=== PATIENT | male | born 1985 | race Caucasian/White ===

== ENCOUNTER 2020-03-22 10:36 | Day surgery (SDC) | payer OTHER ==
[2020-03-22] MEDS ORDERED: Sodium Chloride 0.9% 2.5 ML Syringe FLUSH PRN ×2 (11:16→13:06)
[2020-03-22] MEDS ORDERED: Sodium Chloride 0.9% 10 ML Syringe FLUSH PRN ×2 (11:16→13:06)
--- NOTE | 2020-03-22 11:21 | EDM.PDOC ---
ED HPI GENERAL MEDICAL PROBLEM - General Chief Complaint: Abdominal Pain Stated Complaint: ABDOMINAL PAIN Time Seen by Provider: 03/22/20 10:42 Source of Information: Reports: Patient History Limitations: Reports: No Limitations - History of Present Illness INITIAL COMMENTS - FREE TEXT/NARRATIVE: HISTORY AND PHYSICAL: History of present illness: Patient is a 34-year-old male who presents emergency room today with concern of right lower quadrant abdominal pain and nausea that began last night. Patient states he has also noted a decrease in appetite and has not been able to eat or drink today due to the nausea and decreased appetite. Patient states that he was able to take a dose of Tylenol at about 6 this morning but states he has not taken any other medications for his discomfort. Patient denies any history of abdominal surgeries or any health history. Patient denies any other associated symptoms. Patient denies fever, chills, chest pain, shortness of breath, or cough. Denies headache, neck stiff ness, change in vision, syncope, or near syncope. Denies vomiting, diarrhea, constipation, or dysuria. Has not noted any blood in urine or stool. Review of systems: As per history of present illness and below otherwise all systems reviewed and negative. Past medical history: As per history of present illness and as reviewed below otherwise noncontributory. Surgical history: As per history of present illness and as reviewed below otherwise noncontributory. Social history: See social history for further information Family history: As per history of present illness and as reviewed below otherwise noncontributory. Physical exam: General: Patient is alert, oriented, and in no acute distress. Patient sitting comfortably on exam table. Vital stable and reviewed by me HEENT: Atraumatic, normocephalic, pupils equal and reactive bilaterally, negative for conjunctival pallor or scleral icterus, mucous membranes moist, TMs normal bilaterally, throat clear, neck supple, nontender, trachea midline. No drooling or trismus noted. No meningeal signs. No hot potato voice noted. Lungs: Clear to auscultation, breath sounds equal bilaterally, chest nontender. Heart: S1S2, regular rate and rhythm without overt murmur Abdomen: Soft, nondistended, moderate tenderness of the RLQ without guarding, negative Patel, negative rebound. Negative for masses or hepatosplenomegaly. Negative for costovertebral tenderness. Pelvis: Stable nontender. Genitourinary: Deferred. Rectal: Deferred. Skin: Intact, warm, dry. No lesions or rashes noted. Extremities: Atraumatic, negative for cords or calf pain. Neurovascular unremarkable. Neuro: Awake, alert, oriented. Cranial nerves II through XII unremarkable. Cerebellum unremarkable. Motor and sensory unremarkable throughout. Exam nonfocal. Notes: Dr. Rodriges, general surgery [facility], has come in and personally seen and evaluated the patient. Will transfer to the operating room Voices understanding and is agreeable to plan of care. Denies any further questions or concerns at this time. Diagnostics: CBC, CMP, UA, lipase, abdominal pelvic CT, COVID-19 Therapeutics: Saline, Zosyn Impression: Acute appendicitis Plan: Transfer to the operating room to Dr. Rodriges, general surgery Definitive disposition and diagnosis as appropriate pending reevaluation and review of above. right lower abdomen Pain Score (Numeric/FACES): 5 - Related Data Allergies Allergy/AdvReac Type Severity Reaction Status Date / Time No Known Allergies Allergy Verified 03/22/20 10:59 Home Meds: Home Meds . [No Known Home Meds] 03/22/20 [History] Past Medical History - Past Health History Medical/Surgical History: Denies Medical/Surgical History Social & Family History - Family History Family Medical History: No Pertinent Family History - Tobacco Use Tobacco Use Status *Q: Never Tobacco User - Recreational Drug Use Recreational Drug Use: No ED ROS GENERAL - Review of Systems Review Of Systems: Comprehensive ROS is negative, except as noted in HPI. ED EXAM, GENERAL - Physical Exam Exam: See Below (see dictation) Course - Vital Signs Last Recorded V/S: Last Vital Signs Temp 97.7 F 03/22/20 15:05 Pulse 80 03/22/20 15:10 Resp 13 03/22/20 15:10 BP 128/70 03/22/20 15:10 Pulse Ox 93 L 03/22/20 15:10 - Orders/Labs/Meds Orders: Active Orders 24 hr Category Date Time Status Patient Status [ADT] Routine ADT 03/22/20 13:06 Active Antiembolic Devices [RC] PER UNIT ROUTINE Care 03/22/20 13:06 Active Communication Order [RC] ROUTINE Care 03/22/20 15:14 Active Intake and Output [RC] QSHIFT Care 03/22/20 15:13 Active Notify Provider Consults [RC] ASDIRECTED Care 03/22/20 13:18 Active Oxygen Therapy [RC] PRN Care 03/22/20 15:13 Active RT Incentive Spirometry [RC] Q1HWA Care 03/22/20 15:13 Active Up ad Shraddha [RC] ASDIRECTED Care 03/22/20 15:13 Active Verify Patient Consent Obtain [RC] ASDIRECTED Care 03/22/20 13:06 Active Vital Signs [RC] PER UNIT ROUTINE Care 03/22/20 15:13 Active Consult to Physician [CONS] Stat Cons 03/22/20 13:18 Active Regular Diet [DIET] Diet 03/22/20 Dinner Active UA RFX LOTTIE AND CULT IF INDIC [URIN] Stat Lab 03/22/20 11:16 Ordered Acetaminophen/oxyCODONE [Percocet 325-5 MG] Med 03/22/20 15:13 Active 2 tab PO Q4H PRN HYDROmorphone [Dilaudid] Med 03/22/20 15:13 Active 0.5 mg IVPUSH Q1H PRN Lactated Ringers [Ringers, Lactated] 1,000 ml Med 03/22/20 13:15 Active IV ASDIRECTED Sodium Chloride 0.9% [Normal Saline] Med 03/22/20 13:06 Active 10 ml IV ASDIRECTED PRN Sodium Chloride 0.9% [Saline Flush] Med 03/22/20 11:16 Active 10 ml FLUSH ASDIRECTED PRN Sodium Chloride 0.9% [Saline Flush] Med 03/22/20 13:06 Active 10 ml FLUSH ASDIRECTED PRN Sodium Chloride 0.9% [Saline Flush] Med 03/22/20 11:16 Active 2.5 ml FLUSH ASDIRECTED PRN Sodium Chloride 0.9% [Saline Flush] Med 03/22/20 13:06 Active 2.5 ml FLUSH ASDIRECTED PRN diphenhydrAMINE [Benadryl] Med 03/22/20 15:13 Active 50 mg PO Q4H PRN polyethylene glycoL 3350 [MiraLAX] Med 03/22/20 15:13 Active 17 gm PO DAILY PRN Peripheral IV Insertion Adult [OM.PC] Routine Oth 03/22/20 13:06 Ordered Saline Lock Insert [OM.PC] Stat Oth 03/22/20 11:16 Ordered Sequential Compression Device [OM.PC] Routine Oth 03/22/20 13:06 Ordered Resuscitation Status Routine Resus Stat 03/22/20 13:06 Ordered Medication Orders Diphenhydramine HCl (Benadryl) 50 mg PO Q4H PRN PRN Reason: Itching Hydromorphone HCl (Dilaudid) 0.5 mg IVPUSH Q1H PRN PRN Reason: Pain (severe 7-10) Lactated Ringer's (Ringers, Lactated) 1,000 mls @ 125 mls/hr IV ASDIRECTED ROSS Oxycodone/Acetaminophen (Percocet 325-5 Mg) 2 tab PO Q4H PRN PRN Reason: Pain (moderate 4-6) Polyethylene Glycol (Miralax) 17 gm PO DAILY PRN PRN Reason: Constipation Sodium Chloride (Saline Flush) 10 ml FLUSH ASDIRECTED PRN PRN Reason: Keep Vein Open Last Admin: 03/22/20 11:38 Dose: 10 ml Documented by: [email or web address] Sodium Chloride (Saline Flush) 2.5 ml FLUSH ASDIRECTED PRN PRN Reason: Keep Vein Open Last Admin: 03/22/20 11:38 Dose: 2.5 ml Documented by: [id number] Sodium Chloride (Saline Flush) 10 ml FLUSH ASDIRECTED PRN PRN Reason: Keep Vein Open Sodium Chloride (Saline Flush) 2.5 ml FLUSH ASDIRECTED PRN PRN Reason: Keep Vein Open Sodium Chloride (Normal Saline) 10 ml IV ASDIRECTED PRN PRN Reason: IV Use Labs: Laboratory Tests 03/22/20 03/22/20 03/22/20 Range/Units 11:08 11:08 12:37 WBC 11.06 H (4.0-11.0) K/uL RBC 4.85 (4.50-5.90) M/uL Hgb 15.4 (13.0-17.0) g/dL Hct 44.3 (38.0-50.0) % MCV 91.3 (80.0-98.0) fL MCH 31.8 (27.0-32.0) pg MCHC 34.8 (31.0-37.0) g/dL RDW Std Deviation 43.0 (28.0-62.0) fl RDW Coeff of Nadya 13 (11.0-15.0) % Plt Count 187 (150-400) K/uL MPV 11.10 (7.40-12.00) fL Neut % (Auto) 83.6 H (48.0-80.0) % Lymph % (Auto) 9.6 L (16.0-40.0) % [place] % (Auto) 6.6 (0.0-15.0) % Eos % (Auto) 0.1 (0.0-7.0) % Baso % (Auto) 0.1 (0.0-1.5) % Neut # (Auto) 9.3 H (1.4-5.7) K/uL Lymph # (Auto) 1.1 (0.6-2.4) K/uL [place] # (Auto) 0.7 (0.0-0.8) K/uL Eos # (Auto) 0.0 (0.0-0.7) K/uL Baso # (Auto) 0.0 (0.0-0.1) K/uL Nucleated RBC % 0.0 /100WBC Nucleated RBCs # 0 K/uL Sodium 141 (136-148) mmol/L Potassium 4.1 (3.5-5.1) mmol/L Chloride 104 (98-107) mmol/L Carbon Dioxide 26.3 (21.0-32.0) mmol/L BUN 23 H (7.0-18.0) mg/dL Creatinine 1.2 (0.8-1.3) mg/dL Est Cr Clr Drug Dosing 91.25 mL/min Estimated GFR (MDRD) > 60.0 ml/min Glucose 123 H (74-106) mg/dL Calcium 9.5 (8.5-10.1) mg/dL Total Bilirubin 0.9 (0.2-1.0) mg/dL AST 72 H (15-37) IU/L ALT 37 (14-63) IU/L Alkaline Phosphatase 94 (46-116) U/L Total Protein 8.1 (6.4-8.2) g/dL Albumin 4.5 (3.4-5.0) g/dL Globulin 3.6 (2.6-4.0) g/dL Albumin/Globulin Ratio 1.2 (0.9-1.6) Lipase 133 (73-393) U/L SARS-CoV-2 RNA (TAYLOR) NEGATIVE (NEGATIVE) Meds: Medications Generic Name Dose Route Start Last Admin Trade Name Bayron PRN Reason Stop Dose Admin Diphenhydramine HCl 50 mg 03/22/20 15:13 Benadryl PO Q4H PRN Itching Hydromorphone HCl 0.5 mg 03/22/20 15:13 Dilaudid IVPUSH Q1H PRN Pain (severe 7-10) Lactated Ringer's 1,000 mls @ 125 mls/hr 03/22/20 13:15 Ringers, Lactated IV ASDIRECTED ROSS Oxycodone/Acetaminophen 2 tab 03/22/20 15:13 Percocet 325-5 Mg PO Q4H PRN Pain (moderate 4-6) Polyethylene Glycol 17 gm 03/22/20 15:13 Miralax PO DAILY PRN Constipation Sodium Chloride 10 ml 03/22/20 11:16 03/22/20 11:38 Saline Flush FLUSH 10 ml ASDIRECTED PRN Administration Keep Vein Open Sodium Chloride 2.5 ml 03/22/20 11:16 03/22/20 11:38 Saline Flush FLUSH 2.5 ml ASDIRECTED PRN Administration Keep Vein Open Sodium Chloride 10 ml 03/22/20 13:06 Saline Flush FLUSH ASDIRECTED PRN Keep Vein Open Sodium Chloride 2.5 ml 03/22/20 13:06 Saline Flush FLUSH ASDIRECTED PRN Keep Vein Open Sodium Chloride 10 ml 03/22/20 13:06 Normal Saline IV ASDIRECTED PRN IV Use Discontinued Medications Generic Name Dose Route Start Last Admin Trade Name Bayron PRN Reason Stop Dose Admin Bupivacaine HCl Confirm 03/22/20 13:27 Marcaine 0.5% Administered 03/22/20 13:28 Dose 30 ml .ROUTE .STK-MED ONE Dexamethasone Confirm 03/22/20 13:05 Dexamethasone Administered 03/22/20 13:06 Dose 20 mg .ROUTE .STK-MED ONE Fentanyl Confirm 03/22/20 13:03 Sublimaze Administered 03/22/20 13:04 Dose 250 mcg .ROUTE .STK-MED ONE Glycopyrrolate Confirm 03/22/20 13:05 Robinul Administered 03/22/20 13:06 Dose 0.4 mg .ROUTE .STK-MED ONE Hydromorphone HCl Confirm 03/22/20 13:10 Dilaudid Administered 03/22/20 13:11 Dose 2 mg .ROUTE .STK-MED ONE Sodium Chloride 1,000 mls @ 999 mls/hr 03/22/20 12:36 03/22/20 12:58 Normal Saline IV 03/22/20 13:36 999 mls/hr STAT ONE Administration Piperacillin Sod/Tazobactam 50 mls @ 100 mls/hr 03/22/20 12:36 03/22/20 12:58 Sod 3.375 gm/ Sodium Chloride IV 03/22/20 13:05 100 mls/hr ONETIME ONE Administration Acetaminophen Confirm 03/22/20 13:01 Ofirmev Administered 03/22/20 13:02 Dose 100 mls @ as directed .ROUTE .STK-MED ONE Iopamidol 100 ml 03/22/20 12:10 03/22/20 12:10 Isovue Multipack-370 (76%) IVPUSH 03/22/20 12:11 100 ml ONETIME ONE Administration Ketorolac Tromethamine Confirm 03/22/20 13:05 Toradol Administered 03/22/20 13:06 Dose 30 mg .ROUTE .STK-MED ONE Lidocaine Confirm 03/22/20 13:04 Xylocaine-Mpf 2% Administered 03/22/20 13:05 Dose 5 ml .ROUTE .STK-MED ONE Midazolam HCl Confirm 03/22/20 13:03 Versed 1 Mg/Ml Administered 03/22/20 13:04 Dose 2 mg .ROUTE .STK-MED ONE Octyl Cyanoacrylate Confirm 03/22/20 14:30 Dermabond Advance Administered 03/22/20 14:31 Dose 1 applic .ROUTE .STK-MED ONE Ondansetron HCl Confirm 03/22/20 13:05 Zofran Administered 03/22/20 13:06 Dose 4 mg .ROUTE .STK-MED ONE Propofol Confirm 03/22/20 13:02 Diprivan 20 Ml Administered 03/22/20 13:03 Dose 200 mg .ROUTE .STK-MED ONE Rocuronium Parker Confirm 03/22/20 13:05 Rocuronium Parker Administered 03/22/20 13:06 Dose 50 mg .ROUTE .STK-MED ONE Departure - Departure Time of Disposition: 13:26 Disposition: Still A Patient 30 Clinical Impression: Acute appendicitis Qualifiers: Acute appendicitis type: unspecified acute appendicitis type Qualified Code(s): K35.80 - Unspecified acute appendicitis - Discharge Information Sepsis Event Note (ED) - Evaluation Sepsis Screening Result: No Definite Risk - Focused Exam Vital Signs: Vital Signs Temp Pulse Resp BP Pulse Ox 03/22/20 15:10 80 13 128/70 93 L 03/22/20 15:06 80 14 142/79 H 93 L 03/22/20 15:05 97.7 F 74 14 145/93 H 96 03/22/20 12:59 97.8 F 69 16 126/79 98 03/22/20 10:57 98.9 F 83 16 134/86 97 - My Orders Last 24 Hours: My Active Orders 03/22/20 11:16 UA RFX LOTTIE AND CULT IF INDIC [URIN] Stat Sodium Chloride 0.9% [Saline Flush] 10 ml FLUSH ASDIRECTED PRN Sodium Chloride 0.9% [Saline Flush] 2.5 ml FLUSH ASDIRECTED PRN Saline Lock Insert [OM.PC] Stat 03/22/20 13:18 Notify Provider Consults [RC] ASDIRECTED Consult to Physician [CONS] Stat - Assessment/Plan Last 24 Hours: My Active Orders 03/22/20 11:16 UA RFX LOTTIE AND CULT IF INDIC [URIN] Stat Sodium Chloride 0.9% [Saline Flush] 10 ml FLUSH ASDIRECTED PRN Sodium Chloride 0.9% [Saline Flush] 2.5 ml FLUSH ASDIRECTED PRN Saline Lock Insert [OM.PC] Stat 03/22/20 13:18 Notify Provider Consults [RC] ASDIRECTED Consult to Physician [CONS] Stat
[2020-03-22 11:44] LABS: BLOOD UREA NITROGEN,BUN 23 mg/dL (7.0-18.0); CARBON DIOXIDE,CO2 26.3 mmol/L (21.0-32.0); CHLORIDE,CL 104 mmol/L (98-107); GLUCOSE RANDOM 123 mg/dL (74-106); LIPASE 133 U/L (73-393); POTASSIUM,K 4.1 mmol/L (3.5-5.1); SODIUM,NA 141 mmol/L (136-148)
[2020-03-22] MEDS ORDERED: Iopamidol 755 MG/ML 500 ML Multipack Bottle IVPUSH ONE (12:10)
--- NOTE | 2020-03-22 12:32 | CT ---
INDICATION: Right lower quadrant pain x1 week TECHNIQUE: CT abdomen and pelvis acquired with IV contrast. 100 cc Isovue 370 COMPARISON: None FINDINGS: Lower chest: Unremarkable. Liver: Unremarkable. Spleen: Unremarkable. Pancreas: Unremarkable. Gallbladder and bile ducts: Unremarkable. Kidneys: Unremarkable. Adrenal glands: Unremarkable. GI tract: Unremarkable. Appendix is dilated up to 1.0 centimeters, fluid-filled and thick-walled with adjacent fluid. Findings consistent with acute appendicitis. Vascular structures: Unremarkable. Lymph nodes: Unremarkable. Miscellaneous: Small fat containing umbilical hernia. No free air or significant free fluid. Pelvic Organs: Unremarkable. Bones: Unremarkable for age. IMPRESSION: Dilated thick-walled and fluid-filled appendix with adjacent free fluid consistent with acute appendicitis. Please note that all CT scans at this facility use dose modulation, iterative reconstruction, and/or weight-based dosing when appropriate to reduce radiation dose to as low as reasonably achievable. Dictated by Layo Ruvalcaba MD @ Mar 22 2020 12:31PM Signed by Dr. Layo Ruvalcaba @ Mar 22 2020 12:31PM
[2020-03-22] MEDS ORDERED: Piperacillin/Tazobactam 3.375 GM in Sodium Chloride 0.9% 50 ML IV ONE (12:36)
[2020-03-22] MEDS ORDERED: Sodium Chloride 0.9% 1,000 ML IV ONE (12:36)
[2020-03-22] MEDS ORDERED: Propofol 200 MG/20 ML SDV ONE (13:02)
[2020-03-22] MEDS ORDERED: fentaNYL 250 MCG/5 ML SDV ONE (13:03)
[2020-03-22] MEDS ORDERED: Midazolam 1 MG/ML 2 ML SDV ONE (13:03)
[2020-03-22] MEDS ORDERED: Lidocaine 2% 5 ML SDV ONE (13:04)
[2020-03-22] MEDS ORDERED: Rocuronium Bromide 50 MG/5 ML Syringe ONE (13:05)
[2020-03-22] MEDS ORDERED: Dexamethasone 4 MG/ML 5 ML MDV ONE (13:05)
[2020-03-22] MEDS ORDERED: Glycopyrrolate 0.2 MG/ML SDV ONE (13:05)
[2020-03-22] MEDS ORDERED: Ondansetron 4 MG/2 ML SDV ONE (13:05)
[2020-03-22] MEDS ORDERED: Ketorolac 30 MG/ML SDV ONE (13:05)
[2020-03-22] MEDS ORDERED: Sodium Chloride 0.9% 10 ML SDV IV PRN (13:06)
[2020-03-22] MEDS ORDERED: HYDROmorphone 2 MG/ML Syringe ONE (13:10)
--- NOTE | 2020-03-22 13:12 | PCM.HP.2 ---
H&P History of Present Illness - General Date of Service: 03/22/20 Admit Problem/Dx: Admission Diagnosis/Problem Admission Diagnosis/Problem Appendicitis Source of Information: Patient History Limitations: Reports: No Limitations - History of Present Illness Initial Comments - Free Text/Narative: Patient is a 34 year old male who presents with nausea and abdominal pain. He started to have lower abdominal pain last evening. He woke up this morning feeling nauseated and the pain had not gone away. It was made worse with movement. He presented to the ER. His vitals were stable. His WBC was elevated at 11K with a left shift. A CT abdomen/pelvis showed acute appendicitis. right lower abdomen Pain Score (Numeric/FACES): 5 - Related Data Allergies/Adverse Reactions: Allergies Allergy/AdvReac Type Severity Reaction Status Date / Time No Known Allergies Allergy Verified 03/22/20 10:59 Home Medications: Home Meds . [No Known Home Meds] 03/22/20 [History] Past Medical History - Past Health History Medical/Surgical History: Denies Medical/Surgical History Social & Family History - Family History Family Medical History: No Pertinent Family History - Tobacco Use Tobacco Use Status *Q: Never Tobacco User - Recreational Drug Use Recreational Drug Use: No H&P Review of Systems - Review of Systems: Review Of Systems: Comprehensive ROS is negative, except as noted in HPI. Exam - Exam Exam: See Below - Vital Signs Vital Signs: Last Vital Signs Temp 36.6 C 03/22/20 12:59 Pulse 69 03/22/20 12:59 Resp 16 03/22/20 12:59 BP 126/79 03/22/20 12:59 Pulse Ox 98 03/22/20 12:59 Weight: 95.254 kg - Exam General: Alert, Oriented HEENT: Conjunctiva Clear, Mucosa Moist & [place], Posterior Pharynx Clear Neck: Supple, Trachea Midline Lungs: Clear to Auscultation, Normal Respiratory Effort Cardiovascular: Regular Rate, Regular Rhythm GI/Abdominal Exam: Soft, Guarding (rlq), Rebound (rlq), Tender (rlq) Back Exam: Normal Inspection, Full Range of Motion Extremities: Normal Inspection, Normal Range of Motion Skin: Warm, Dry, Intact Psychiatric: Alert, Normal Affect, Normal Mood - Patient Data Lab Results Last 24 hrs: Laboratory Results - last 24 hr 03/22/20 03/22/20 Range/Units 11:08 11:08 WBC 11.06 H (4.0-11.0) K/uL RBC 4.85 (4.50-5.90) M/uL Hgb 15.4 (13.0-17.0) g/dL Hct 44.3 (38.0-50.0) % MCV 91.3 (80.0-98.0) fL MCH 31.8 (27.0-32.0) pg MCHC 34.8 (31.0-37.0) g/dL RDW Std Deviation 43.0 (28.0-62.0) fl RDW Coeff of Nadya 13 (11.0-15.0) % Plt Count 187 (150-400) K/uL MPV 11.10 (7.40-12.00) fL Neut % (Auto) 83.6 H (48.0-80.0) % Lymph % (Auto) 9.6 L (16.0-40.0) % [place] % (Auto) 6.6 (0.0-15.0) % Eos % (Auto) 0.1 (0.0-7.0) % Baso % (Auto) 0.1 (0.0-1.5) % Neut # (Auto) 9.3 H (1.4-5.7) K/uL Lymph # (Auto) 1.1 (0.6-2.4) K/uL [place] # (Auto) 0.7 (0.0-0.8) K/uL Eos # (Auto) 0.0 (0.0-0.7) K/uL Baso # (Auto) 0.0 (0.0-0.1) K/uL Nucleated RBC % 0.0 /100WBC Nucleated RBCs # 0 K/uL Sodium 141 (136-148) mmol/L Potassium 4.1 (3.5-5.1) mmol/L Chloride 104 (98-107) mmol/L Carbon Dioxide 26.3 (21.0-32.0) mmol/L BUN 23 H (7.0-18.0) mg/dL Creatinine 1.2 (0.8-1.3) mg/dL Est Cr Clr Drug Dosing 91.25 mL/min Estimated GFR (MDRD) > 60.0 ml/min Glucose 123 H (74-106) mg/dL Calcium 9.5 (8.5-10.1) mg/dL Total Bilirubin 0.9 (0.2-1.0) mg/dL AST 72 H (15-37) IU/L ALT 37 (14-63) IU/L Alkaline Phosphatase 94 (46-116) U/L Total Protein 8.1 (6.4-8.2) g/dL Albumin 4.5 (3.4-5.0) g/dL Globulin 3.6 (2.6-4.0) g/dL Albumin/Globulin Ratio 1.2 (0.9-1.6) Lipase 133 (73-393) U/L Result Diagrams: 03/22/20 11:08 03/22/20 11:08 Sepsis Event Note - Evaluation Sepsis Screening Result: No Definite Risk - Focused Exam Vital Signs: Vital Signs Temp Pulse Resp BP Pulse Ox 03/22/20 12:59 36.6 C 69 16 126/79 98 03/22/20 10:57 37.2 C 83 16 134/86 97 - Problem List (1) Appendicitis SNOMED Code(s): 07726144 ICD Code: K37 - UNSPECIFIED APPENDICITIS Status: Acute Current Visit: Yes Problem List Initiated/Reviewed/Updated: Yes Orders Last 24hrs: Active Orders 24 hr Category Date Time Status Patient Status [ADT] Routine ADT 03/22/20 13:06 Ordered Antiembolic Devices [RC] PER UNIT ROUTINE Care 03/22/20 13:06 Ordered Verify Patient Consent Obtain [RC] ASDIRECTED Care 03/22/20 13:06 Ordered Nothing Per Oral Diet [DIET] Diet 03/22/20 Lunch Ordered CORONAVIRUS COVID-19 TAYLOR [MOLEC] Stat Lab 03/22/20 12:37 Received UA RFX LOTTIE AND CULT IF INDIC [URIN] Stat Lab 03/22/20 11:16 Ordered Lactated Ringers @ 125 MLS/HR(1000ml) Med 03/22/20 13:15 Ordered Lactated Ringers [Ringers, Lactated] 1,000 ml IV ASDIRECTED Sodium Chloride 0.9% [Normal Saline] Med 03/22/20 13:06 Ordered 10 ml IV ASDIRECTED PRN Sodium Chloride 0.9% [Normal Saline] 1,000 ml Med 03/22/20 12:36 Active IV STAT Sodium Chloride 0.9% [Saline Flush] Med 03/22/20 11:16 Active 10 ml FLUSH ASDIRECTED PRN Sodium Chloride 0.9% [Saline Flush] Med 03/22/20 13:06 Ordered 10 ml FLUSH ASDIRECTED PRN Sodium Chloride 0.9% [Saline Flush] Med 03/22/20 11:16 Active 2.5 ml FLUSH ASDIRECTED PRN Sodium Chloride 0.9% [Saline Flush] Med 03/22/20 13:06 Ordered 2.5 ml FLUSH ASDIRECTED PRN Peripheral IV Insertion Adult [OM.PC] Routine Oth 03/22/20 13:06 Ordered Saline Lock Insert [OM.PC] Stat Oth 03/22/20 11:16 Ordered Sequential Compression Device [OM.PC] Routine Oth 03/22/20 13:06 Ordered Resuscitation Status Routine Resus Stat 03/22/20 13:06 Ordered Medication Orders Sodium Chloride (Normal Saline) 1,000 mls @ 999 mls/hr IV STAT ONE Stop: 03/22/20 13:36 Last Admin: 03/22/20 12:58 Dose: 999 mls/hr Documented by: [email or web address] Lactated Ringer's (Ringers, Lactated) 1,000 mls @ 125 mls/hr IV ASDIRECTED ROSS Sodium Chloride (Saline Flush) 10 ml FLUSH ASDIRECTED PRN PRN Reason: Keep Vein Open Last Admin: 03/22/20 11:38 Dose: 10 ml Documented by: [id number] Sodium Chloride (Saline Flush) 2.5 ml FLUSH ASDIRECTED PRN PRN Reason: Keep Vein Open Last Admin: 03/22/20 11:38 Dose: 2.5 ml Documented by: [id number] Sodium Chloride (Saline Flush) 10 ml FLUSH ASDIRECTED PRN PRN Reason: Keep Vein Open Sodium Chloride (Saline Flush) 2.5 ml FLUSH ASDIRECTED PRN PRN Reason: Keep Vein Open Sodium Chloride (Normal Saline) 10 ml IV ASDIRECTED PRN PRN Reason: IV Use Assessment/Plan Comment:: The patient and I discussed the pathophysiology of appendicitis. I explained the need for an appendectomy. I will attempt it laparoscopic and convert to open should I be unable to perform it safely. I discussed the expected perioperative course with perforated vs non-perforated. We discussed the lifting restrictions afterwards. I explained the risks including bleeding, infection or damage to surrounding structures. He verbalized understanding and wishes to proceed. Will keep him npo, give him 1L of NS and 3.375mg IV zosyn.
[2020-03-22] MEDS ORDERED: Lactated Ringers 1,000 ML IV SCH (13:15)
--- NOTE | 2020-03-22 13:25 | PCM.PREANE ---
Preanesthetic Assessment - Anesthesia/Transfusion/Family Hx Anesthesia History: No Prior Anesthesia Family History of Anesthesia Reaction: No Intubation History: Unknown - Review of Systems General: No Symptoms Pulmonary: No Symptoms Cardiovascular: No Symptoms Gastrointestinal: Abdominal Pain Neurological: No Symptoms Other: Reports: None - Physical Assessment Vital Signs: Last Vital Signs Temp 36.6 C 03/22/20 12:59 Pulse 69 03/22/20 12:59 Resp 16 03/22/20 12:59 BP 126/79 03/22/20 12:59 Pulse Ox 98 03/22/20 12:59 Height: 5 ft 10 in Weight: 95.254 kg ASA Class: 2E Mental Status: Alert & Oriented x3 Airway Class: Mallampati = 3 Dentition: Reports: Normal Dentition Thyro-Mental Finger Breadths: 3 Mouth Opening Finger Breadths: 2 (small mouth) ROM/Head Extension: Full Lungs: Clear to Auscultation, Normal Respiratory Effort Cardiovascular: Regular Rate, Regular Rhythm - Lab Values: Laboratory Last Values WBC 11.06 K/uL (4.0-11.0) H 03/22/20 11:08 RBC 4.85 M/uL (4.50-5.90) 03/22/20 11:08 Hgb 15.4 g/dL (13.0-17.0) 03/22/20 11:08 Hct 44.3 % (38.0-50.0) 03/22/20 11:08 MCV 91.3 fL (80.0-98.0) 03/22/20 11:08 MCH 31.8 pg (27.0-32.0) 03/22/20 11:08 MCHC 34.8 g/dL (31.0-37.0) 03/22/20 11:08 RDW Std Deviation 43.0 fl (28.0-62.0) 03/22/20 11:08 RDW Coeff of Nadya 13 % (11.0-15.0) 03/22/20 11:08 Plt Count 187 K/uL (150-400) 03/22/20 11:08 MPV 11.10 fL (7.40-12.00) 03/22/20 11:08 Neut % (Auto) 83.6 % (48.0-80.0) H 03/22/20 11:08 Lymph % (Auto) 9.6 % (16.0-40.0) L 03/22/20 11:08 [place] % (Auto) 6.6 % (0.0-15.0) 03/22/20 11:08 Eos % (Auto) 0.1 % (0.0-7.0) 03/22/20 11:08 Baso % (Auto) 0.1 % (0.0-1.5) 03/22/20 11:08 Neut # (Auto) 9.3 K/uL (1.4-5.7) H 03/22/20 11:08 Lymph # (Auto) 1.1 K/uL (0.6-2.4) 03/22/20 11:08 [place] # (Auto) 0.7 K/uL (0.0-0.8) 03/22/20 11:08 Eos # (Auto) 0.0 K/uL (0.0-0.7) 03/22/20 11:08 Baso # (Auto) 0.0 K/uL (0.0-0.1) 03/22/20 11:08 Nucleated RBC % 0.0 /100WBC 03/22/20 11:08 Nucleated RBCs # 0 K/uL 03/22/20 11:08 Sodium 141 mmol/L (136-148) 03/22/20 11:08 Potassium 4.1 mmol/L (3.5-5.1) 03/22/20 11:08 Chloride 104 mmol/L (98-107) 03/22/20 11:08 Carbon Dioxide 26.3 mmol/L (21.0-32.0) 03/22/20 11:08 BUN 23 mg/dL (7.0-18.0) H 03/22/20 11:08 Creatinine 1.2 mg/dL (0.8-1.3) 03/22/20 11:08 Est Cr Clr Drug Dosing 91.25 mL/min 03/22/20 11:08 Estimated GFR (MDRD) > 60.0 ml/min 03/22/20 11:08 Glucose 123 mg/dL (74-106) H 03/22/20 11:08 Calcium 9.5 mg/dL (8.5-10.1) 03/22/20 11:08 Total Bilirubin 0.9 mg/dL (0.2-1.0) 03/22/20 11:08 AST 72 IU/L (15-37) H 03/22/20 11:08 ALT 37 IU/L (14-63) 03/22/20 11:08 Alkaline Phosphatase 94 U/L (46-116) 03/22/20 11:08 Total Protein 8.1 g/dL (6.4-8.2) 03/22/20 11:08 Albumin 4.5 g/dL (3.4-5.0) 03/22/20 11:08 Globulin 3.6 g/dL (2.6-4.0) 03/22/20 11:08 Albumin/Globulin Ratio 1.2 (0.9-1.6) 03/22/20 11:08 Lipase 133 U/L (73-393) 03/22/20 11:08 - Allergies Allergies/Adverse Reactions: Allergies Allergy/AdvReac Type Severity Reaction Status Date / Time No Known Allergies Allergy Verified 03/22/20 10:59 - Blood Blood Available: No - Anesthesia Plan Pre-Op Medication Ordered: None - Acknowledgements Anesthesia Type Planned: General Anesthesia Pt an Appropriate Candidate for the Planned Anesthesia: Yes Alternatives and Risks of Anesthesia Discussed w Pt/Guardian: Yes Pt/Guardian Understands and Agrees with Anesthesia Plan: Yes PreAnesthesia Questionnaire - Past Health History Medical/Surgical History: Denies Medical/Surgical History Gastrointestinal History: Reports: Other (See Below) (acute appendicitis) Endocrine/Metabolic History: Reports: Obesity/BMI 30+ (BMI 30.1) - Past Surgical History Head Surgeries/Procedures: Reports: None - SUBSTANCE USE Tobacco Use Status *Q: Never Tobacco User Recreational Drug Use History: No - HOME MEDS Home Medications: Home Meds . [No Known Home Meds] 03/22/20 [History] - CURRENT (IN HOUSE) MEDS Current Meds: Current Medications Sodium Chloride (Normal Saline) 1,000 mls @ 999 mls/hr IV STAT ONE Stop: 03/22/20 13:36 Last Admin: 03/22/20 12:58 Dose: 999 mls/hr Documented by: Lactated Ringer's (Ringers, Lactated) 1,000 mls @ 125 mls/hr IV ASDIRECTED ROSS Sodium Chloride (Saline Flush) 10 ml FLUSH ASDIRECTED PRN PRN Reason: Keep Vein Open Last Admin: 03/22/20 11:38 Dose: 10 ml Documented by: Sodium Chloride (Saline Flush) 2.5 ml FLUSH ASDIRECTED PRN PRN Reason: Keep Vein Open Last Admin: 03/22/20 11:38 Dose: 2.5 ml Documented by: Sodium Chloride (Saline Flush) 10 ml FLUSH ASDIRECTED PRN PRN Reason: Keep Vein Open Sodium Chloride (Saline Flush) 2.5 ml FLUSH ASDIRECTED PRN PRN Reason: Keep Vein Open Sodium Chloride (Normal Saline) 10 ml IV ASDIRECTED PRN PRN Reason: IV Use Discontinued Medications Dexamethasone (Dexamethasone) Confirm Administered Dose 20 mg .ROUTE .STK-MED ONE Stop: 03/22/20 13:06 Fentanyl (Sublimaze) Confirm Administered Dose 250 mcg .ROUTE .STK-MED ONE Stop: 03/22/20 13:04 Glycopyrrolate (Robinul) Confirm Administered Dose 0.4 mg .ROUTE .STK-MED ONE Stop: 03/22/20 13:06 Hydromorphone HCl (Dilaudid) Confirm Administered Dose 2 mg .ROUTE .STK-MED ONE Stop: 03/22/20 13:11 Piperacillin Sod/Tazobactam (Sod 3.375 gm/ Sodium Chloride) 50 mls @ 100 mls/hr IV ONETIME ONE Stop: 03/22/20 13:05 Last Admin: 03/22/20 12:58 Dose: 100 mls/hr Documented by: Acetaminophen (Ofirmev) Confirm Administered Dose 100 mls @ as directed .ROUTE .STK-MED ONE Stop: 03/22/20 13:02 Iopamidol (Isovue Multipack-370 (76%)) 100 ml IVPUSH ONETIME ONE Stop: 03/22/20 12:11 Last Admin: 03/22/20 12:10 Dose: 100 ml Documented by: Ketorolac Tromethamine (Toradol) Confirm Administered Dose 30 mg .ROUTE .STK-MED ONE Stop: 03/22/20 13:06 Lidocaine (Xylocaine-Mpf 2%) Confirm Administered Dose 5 ml .ROUTE .STK-MED ONE Stop: 03/22/20 13:05 Midazolam HCl (Versed 1 Mg/Ml) Confirm Administered Dose 2 mg .ROUTE .STK-MED ONE Stop: 03/22/20 13:04 Ondansetron HCl (Zofran) Confirm Administered Dose 4 mg .ROUTE .[facility] ONE Stop: 03/22/20 13:06 Propofol (Diprivan 20 Ml) Confirm Administered Dose 200 mg .ROUTE .[facility] ONE Stop: 03/22/20 13:03 Rocuronium [place] (Rocuronium [place]) Confirm Administ[facility] D[facility]: 03/22/20 13:06
[2020-03-22] MEDS ORDERED: Bupivacaine 0.5% 30 ML SDV ONE (13:27)
[2020-03-22] MEDS ORDERED: Octyl 2-Cyanoacrylate 1 Tube ONE (14:30)
--- NOTE | 2020-03-22 15:10 | PCM.OPNOTE ---
- General Post-Op/Procedure Note Date of Surgery/Procedure: 03/22/20 Operative Procedure(s): Laparoscopic appendectomy Findings: inflamed and enlarged appendix. no evidence of perforation Pre Op Diagnosis: acute appendicitis Post-Op Diagnosis: same Anesthesia Technique: General ET Tube Primary Surgeon: Deena Rodriges Fluid Replacement, Intraop: 1,500 Output, Urine Amount: 100 EBL in mLs: 5 Condition: Stable Free Text/Narrative:: Intake & Output 03/22/20 03/22/20 03/22/20 06:59 14:59 22:59 Output Total 100 Balance -100
[2020-03-22] MEDS ORDERED: Polyethylene Glycol 3350 Powder 17 GM Packet PO PRN (15:13)
[2020-03-22] MEDS ORDERED: HYDROmorphone 2 MG/ML Syringe IVPUSH PRN (15:13)
[2020-03-22] MEDS ORDERED: diphenhydrAMINE 25 MG Cap PO PRN (15:13)
--- NOTE | 2020-03-22 15:50 | PCM.POSTAN ---
POST ANESTHESIA ASSESSMENT - MENTAL STATUS Mental Status: Alert (Late entry, assessed at 1538), Oriented - VITAL SIGNS Vital Signs: Last Vital Signs Temp 36.5 C 03/22/20 15:05 Pulse 54 L 03/22/20 15:46 Resp 13 03/22/20 15:46 BP 119/82 03/22/20 15:46 Pulse Ox 96 03/22/20 15:46 - RESPIRATORY Respiratory Status: Respiratory Rate WNL, Airway Patent, O2 Saturation Stable - CARDIOVASCULAR CV Status: Pulse Rate WNL, Blood Pressure Stable - GASTROINTESTINAL GI Status: No Symptoms - PAIN Pain Score: 0 Free Text/Narrative:: Denies pain - POST OP HYDRATION Hydration Status: Adequate & Stable
--- NOTE | 2020-03-22 15:51 | PCM48HPAN ---
Post Anesthesia Note - EVALUATION WITHIN 48HRS OF ANESTHETIC Vital Signs in Normal Range: Yes Patient Participated in Evaluation: Yes Respiratory Function Stable: Yes Airway Patent: Yes Cardiovascular Function Stable: Yes Hydration Status Stable: Yes Pain Control Satisfactory: Yes (Denies pain) Nausea and Vomiting Control Satisfactory: Yes (Denies N/V) Mental Status Recovered: Yes Vital Signs: Last Vital Signs Temp 36.5 C 03/22/20 15:05 Pulse 54 L 03/22/20 15:46 Resp 13 03/22/20 15:46 BP 119/82 03/22/20 15:46 Pulse Ox 96 03/22/20 15:46 - COMMENTS/OBSERVATIONS Free Text/Narrative:: Alert and conversing, okay to discharge to floor.
--- NOTE | 2020-03-22 15:59 | PCM.SN.2 ---
- Free Text/Narrative Note: DIFFICULT AIRWAY NOTE 03/22/20 See paper charting for thorough documentation. In summary: DL x 3 with MAC 3, Mill 2, and glidescope for grade 3 view. Bougie used to pass 8.0 ETT. Anterior larynx, small mouth opening. Easy to mask ventilate. Patient educated on difficult airway precautions including carrying a wallet card (which he was supplied), informing practitioner of difficult airway prior to scheduling any procedure, and avoiding outpatient surgical procedures unless they expressly assure him they are properly equipped. Patient was also supplied with the "difficult airway" paperwork which includes MDA, surgeon, and my (FIREW[employer] ADMINISTRATOR) names, and my contact information.
--- NOTE | 2020-03-22 17:25 | OR ---
SURGEON: DEENA RODRIGES MD DATE OF PROCEDURE: 03/22/2020 PREOPERATIVE DIAGNOSIS: Acute appendicitis. POSTOPERATIVE DIAGNOSIS: Acute appendicitis. PROCEDURE PERFORMED: Laparoscopic appendectomy. PRIMARY SURGEON: Deena Rodriges MD ANESTHESIA: General endotracheal anesthesia. FLUIDS: 1500 mL of crystalloid. ESTIMATED BLOOD LOSS: 5 mL. URINE OUTPUT: 100 mL. FINDINGS: Acutely inflamed and enlarged appendix with no evidence of perforation. COMPLICATIONS: None. INDICATIONS: The patient is a 34-year-old male who presents with a 1-day history of right lower quadrant abdominal pain. Workup in the emergency room revealed acute appendicitis. I explained the need for an appendectomy. I would attempt this laparoscopically, but convert to open should I be unable to perform it safely. The patient and I discussed the procedure, expected perioperative course, and the risks including bleeding, infection, or damage to surrounding structures. He verbalized understanding and wishes to proceed. PROCEDURE IN DETAIL: The patient was brought into the OR, placed on the OR table in supine position. A time-out was completed verifying the patient's name, age, date of , allergies, and procedure to be performed. General endotracheal anesthesia was induced. The left arm was tucked to the patient's side and a Joe catheter placed. The abdomen was prepped and draped in usual standard fashion. I anesthetized an area 2 fingerbreadths below the left subcostal margin in the midclavicular line with 0.5% Marcaine plain. An 11 blade was used to make a 1 cm incision over this area. A 5 mm optical trocar was used to gain entry into the abdomen under direct visualization. All layers of the abdominal wall were visualized upon entry. The abdomen was insufflated and a 5 mm 30-degree scope was inserted. I inspected the area underneath my initial trocar placement. No damage to surrounding structures was noted. A 5 mm trocar was placed just left and lateral to the umbilicus under direct visualization. A 12 mm trocar was placed in the left lower quadrant under direct visualization. The patient was placed into Trendelenburg position and airplaned slightly to the left. I turned my attention to the right lower quadrant. I immediately noticed the tip of the appendix. It was inflamed and enlarged. This was grasped and elevated anteriorly. The appendix itself showed signs of inflammation and dilation, but there was no evidence of perforation. I identified the base of the appendix. I identified the cecum as well as the terminal ileum. Once I had verified my anatomy, I brought a Harmonic scalpel device into the field. I took down the appendiceal mesentery from distal to proximal using this device. Once the base of the appendix was cleared away, an endoscopic stapling device was brought into the field. I stapled and transected across the base of the appendix using a 35 mm blue load of petra. The appendix was then placed in an Endo Catch bag and removed through the 12 mm port site. The 12 mm trocar was placed back into the abdomen and I inspected my operative field. The staple line had a small amount of bleeding. A piece of Surgicel was placed over the area and the bleeding stopped. A small amount of irrigation was used around the area and suctioned away. Once I confirmed that hemostasis was achieved, I turned my attention to the 12 mm trocar site. The trocar was removed and I closed the fascia at that site using an interrupted 0 Vicryl suture using a Brayan-Naveen device. The 5 mm trocars were removed under direct visualization and the abdomen allowed to desufflate. The subcutaneous fat layer of the incision sites were closed with interrupted 3-0 Vicryl sutures. The skin at each site was closed with interrupted 4-0 Monocryl sutures. Steri-Strips and sterile dressings were applied. The patient tolerated the procedure well. All counts were complete and correct at the end of the case. He was extubated and taken to PACU in stable condition. CLARE / KAYLA /[id number]
[2020-03-22] MEDS: Acetaminophen/oxyCODONE 325-5 MG Tab PO PRN (23:38)
--- NOTE | 2020-03-23 07:50 | PCM.SURGPN ---
- General Info Date of Service: 03/23/20 Date of Surgery/Procedure: 03/22/20 POD#: 0 Functional Status: Reports: Pain Controlled, Tolerating Diet, Ambulating, Urinating - Review of Systems General: Reports: No Symptoms HEENT: Reports: No Symptoms Pulmonary: Reports: No Symptoms Cardiovascular: Reports: No Symptoms Gastrointestinal: Reports: No Symptoms Genitourinary: Reports: No Symptoms Skin: Reports: No Symptoms - Patient Data Vitals - Most Recent: Last Vital Signs Temp 36.9 C 03/23/20 07:00 Pulse 68 03/23/20 07:00 Resp 18 03/23/20 07:00 BP 103/52 L 03/23/20 07:00 Pulse Ox 95 03/23/20 07:00 Weight - Most Recent: 95.254 kg I&O - Last 24 Hours: Intake & Output 03/22/20 03/23/20 03/23/20 22:59 06:59 14:59 Intake Total 2400 2000 Output Total 100 Balance 2300 2000 Lab Results Last 24 Hrs: Laboratory Results - last 24 hr 03/22/20 03/22/20 03/22/20 Range/Units 11:08 11:08 12:37 WBC 11.06 H (4.0-11.0) K/uL RBC 4.85 (4.50-5.90) M/uL Hgb 15.4 (13.0-17.0) g/dL Hct 44.3 (38.0-50.0) % MCV 91.3 (80.0-98.0) fL MCH 31.8 (27.0-32.0) pg MCHC 34.8 (31.0-37.0) g/dL RDW Std Deviation 43.0 (28.0-62.0) fl RDW Coeff of Nadya 13 (11.0-15.0) % Plt Count 187 (150-400) K/uL MPV 11.10 (7.40-12.00) fL Neut % (Auto) 83.6 H (48.0-80.0) % Lymph % (Auto) 9.6 L (16.0-40.0) % [place] % (Auto) 6.6 (0.0-15.0) % Eos % (Auto) 0.1 (0.0-7.0) % Baso % (Auto) 0.1 (0.0-1.5) % Neut # (Auto) 9.3 H (1.4-5.7) K/uL Lymph # (Auto) 1.1 (0.6-2.4) K/uL [place] # (Auto) 0.7 (0.0-0.8) K/uL Eos # (Auto) 0.0 (0.0-0.7) K/uL Baso # (Auto) 0.0 (0.0-0.1) K/uL Nucleated RBC % 0.0 /100WBC Nucleated RBCs # 0 K/uL Sodium 141 (136-148) mmol/L Potassium 4.1 (3.5-5.1) mmol/L Chloride 104 (98-107) mmol/L Carbon Dioxide 26.3 (21.0-32.0) mmol/L BUN 23 H (7.0-18.0) mg/dL Creatinine 1.2 (0.8-1.3) mg/dL Est Cr Clr Drug Dosing 91.25 mL/min Estimated GFR (MDRD) > 60.0 ml/min Glucose 123 H (74-106) mg/dL Calcium 9.5 (8.5-10.1) mg/dL Total Bilirubin 0.9 (0.2-1.0) mg/dL AST 72 H (15-37) IU/L ALT 37 (14-63) IU/L Alkaline Phosphatase 94 (46-116) U/L Total Protein 8.1 (6.4-8.2) g/dL Albumin 4.5 (3.4-5.0) g/dL Globulin 3.6 (2.6-4.0) g/dL Albumin/Globulin Ratio 1.2 (0.9-1.6) Lipase 133 (73-393) U/L Urine Color Urine Appearance Urine pH (5.0-8.0) Ur Specific [place] (1.001-1.035) Urine Protein (NEGATIVE) mg/dL Urine Glucose (UA) (NEGATIVE) mg/dL Urine Ketones (NEGATIVE) mg/dL Urine Occult Blood (NEGATIVE) Urine Nitrite (NEGATIVE) Urine Bilirubin (NEGATIVE) Urine Urobilinogen (<2.0) EU/dL Ur Leukocyte Esterase (NEGATIVE) SARS-CoV-2 RNA (TAYLOR) NEGATIVE (NEGATIVE) 03/22/20 Range/Units 13:37 WBC (4.0-11.0) K/uL RBC (4.50-5.90) M/uL Hgb (13.0-17.0) g/dL Hct (38.0-50.0) % MCV (80.0-98.0) fL MCH (27.0-32.0) pg MCHC (31.0-37.0) g/dL RDW Std Deviation (28.0-62.0) fl RDW Coeff of Nadya (11.0-15.0) % Plt Count (150-400) K/uL MPV (7.40-12.00) fL Neut % (Auto) (48.0-80.0) % Lymph % (Auto) (16.0-40.0) % [place] % (Auto) (0.0-15.0) % Eos % (Auto) (0.0-7.0) % Baso % (Auto) (0.0-1.5) % Neut # (Auto) (1.4-5.7) K/uL Lymph # (Auto) (0.6-2.4) K/uL [place] # (Auto) (0.0-0.8) K/uL Eos # (Auto) (0.0-0.7) K/uL Baso # (Auto) (0.0-0.1) K/uL Nucleated RBC % /100WBC Nucleated RBCs # K/uL Sodium (136-148) mmol/L Potassium (3.5-5.1) mmol/L Chloride (98-107) mmol/L Carbon Dioxide (21.0-32.0) mmol/L BUN (7.0-18.0) mg/dL Creatinine (0.8-1.3) mg/dL Est Cr Clr Drug Dosing mL/min Estimated GFR (MDRD) ml/min Glucose (74-106) mg/dL Calcium (8.5-10.1) mg/dL Total Bilirubin (0.2-1.0) mg/dL AST (15-37) IU/L ALT (14-63) IU/L Alkaline Phosphatase (46-116) U/L Total Protein (6.4-8.2) g/dL Albumin (3.4-5.0) g/dL Globulin (2.6-4.0) g/dL Albumin/Globulin Ratio (0.9-1.6) Lipase (73-393) U/L Urine Color YELLOW Urine Appearance CLEAR Urine pH 7.0 (5.0-8.0) Ur Specific [place] 1.010 (1.001-1.035) Urine Protein NEGATIVE (NEGATIVE) mg/dL Urine Glucose (UA) NEGATIVE (NEGATIVE) mg/dL Urine Ketones NEGATIVE (NEGATIVE) mg/dL Urine Occult Blood NEGATIVE (NEGATIVE) Urine Nitrite NEGATIVE (NEGATIVE) Urine Bilirubin NEGATIVE (NEGATIVE) Urine Urobilinogen 0.2 (<2.0) EU/dL Ur Leukocyte Esterase NEGATIVE (NEGATIVE) SARS-CoV-2 RNA (TAYLOR) (NEGATIVE) Med Orders - Current: Current Medications Diphenhydramine HCl (Benadryl) 50 mg PO Q4H PRN PRN Reason: Itching Last Admin: 03/22/20 17:31 Dose: 50 mg Documented by: Hydromorphone HCl (Dilaudid) 0.5 mg IVPUSH Q1H PRN PRN Reason: Pain (severe 7-10) Lactated Ringer's (Ringers, Lactated) 1,000 mls @ 125 mls/hr IV ASDIRECTED ROSS Last Admin: 03/22/20 16:11 Dose: 125 mls/hr Documented by: Oxycodone/Acetaminophen (Percocet 325-5 Mg) 2 tab PO Q4H PRN PRN Reason: Pain (moderate 4-6) Last Admin: 03/22/20 23:38 Dose: 2 tab Documented by: Polyethylene Glycol (Miralax) 17 gm PO DAILY PRN PRN Reason: Constipation Sodium Chloride (Saline Flush) 10 ml FLUSH ASDIRECTED PRN PRN Reason: Keep Vein Open Last Admin: 03/22/20 11:38 Dose: 10 ml Documented by: Sodium Chloride (Saline Flush) 2.5 ml FLUSH ASDIRECTED PRN PRN Reason: Keep Vein Open Last Admin: 03/22/20 11:38 Dose: 2.5 ml Documented by: Sodium Chloride (Saline Flush) 10 ml FLUSH ASDIRECTED PRN PRN Reason: Keep Vein Open Sodium Chloride (Saline Flush) 2.5 ml FLUSH ASDIRECTED PRN PRN Reason: Keep Vein Open Sodium Chloride (Normal Saline) 10 ml IV ASDIRECTED PRN PRN Reason: IV Use Discontinued Medications Bupivacaine HCl (Marcaine 0.5%) Confirm Administered Dose 30 ml .ROUTE .STK-MED ONE Stop: 03/22/20 13:28 Dexamethasone (Dexamethasone) Confirm Administered Dose 20 mg .ROUTE .STK-MED ONE Stop: 03/22/20 13:06 Fentanyl (Sublimaze) Confirm Administered Dose 250 mcg .ROUTE .STK-MED ONE Stop: 03/22/20 13:04 Glycopyrrolate (Robinul) Confirm Administered Dose 0.4 mg .ROUTE .STK-MED ONE Stop: 03/22/20 13:06 Hydromorphone HCl (Dilaudid) Confirm Administered Dose 2 mg .ROUTE .STK-MED ONE Stop: 03/22/20 13:11 Sodium Chloride (Normal Saline) 1,000 mls @ 999 mls/hr IV STAT ONE Stop: 03/22/20 13:36 Last Admin: 03/22/20 12:58 Dose: 999 mls/hr Documented by: Piperacillin Sod/Tazobactam (Sod 3.375 gm/ Sodium Chloride) 50 mls @ 100 mls/hr IV ONETIME ONE Stop: 03/22/20 13:05 Last Admin: 03/22/20 12:58 Dose: 100 mls/hr Documented by: Acetaminophen (Ofirmev) Confirm Administered Dose 100 mls @ as directed .ROUTE .STK-MED ONE Stop: 03/22/20 13:02 Iopamidol (Isovue Multipack-370 (76%)) 100 ml IVPUSH ONETIME ONE Stop: 03/22/20 12:11 Last Admin: 03/22/20 12:10 Dose: 100 ml Documented by: Ketorolac Tromethamine (Toradol) Confirm Administered Dose 30 mg .ROUTE .STK-MED ONE Stop: 03/22/20 13:06 Lidocaine (Xylocaine-Mpf 2%) Confirm Administered Dose 5 ml .ROUTE .STK-MED ONE Stop: 03/22/20 13:05 Midazolam HCl (Versed 1 Mg/Ml) Confirm Administered Dose 2 mg .ROUTE .STK-MED ONE Stop: 03/22/20 13:04 Octyl Cyanoacrylate (Dermabond Advance) Confirm Administered Dose 1 applic .ROUTE .STK-MED ONE Stop: 03/22/20 14:31 Ondansetron HCl (Zofran) Confirm Administered Dose 4 mg .ROUTE .STK-MED ONE Stop: 03/22/20 13:06 Propofol (Diprivan 20 Ml) Confirm Administered Dose 200 mg .ROUTE .STK-MED ONE Stop: 03/22/20 13:03 Rocuronium [place] (Rocuronium [place]) Confirm Administered Dose 50 mg .ROUTE .STK-MED ONE Stop: 03/22/20 13:06 - Exam Wound/Incisions: Healing Well, Dressing Dry and Intact General: Alert, Oriented HEENT: Pupils Equal, Pupils Reactive Lungs: Normal Respiratory Effort Cardiovascular: Regular Rate GI/Abdominal Exam: Soft, Non-Tender, No Distention, No Mass Extremities: Normal Inspection Skin: Warm, Dry, Intact Sepsis Event Note - Evaluation Sepsis Screening Result: No Definite Risk - Focused Exam Vital Signs: Vital Signs Temp Pulse Resp BP Pulse Ox 03/23/20 07:00 36.9 C 68 18 103/52 L 95 03/23/20 03:00 36.7 C 54 L 18 102/56 L 95 03/22/20 23:47 36.7 C 75 18 129/60 94 L 03/22/20 19:52 36.8 C 56 L 16 118/56 L 95 - Problem List & Annotations (1) Appendicitis SNOMED Code(s): 38960808 Code(s): K37 - UNSPECIFIED APPENDICITIS Status: Acute Current Visit: Yes - Problem List Review Problem List Initiated/Reviewed/Updated: Yes - My Orders Last 24 Hours: Active Orders 24 hr Category Date Time Status Patient Status [ADT] Routine ADT 03/22/20 13:06 Active Antiembolic Devices [RC] PER UNIT ROUTINE Care 03/22/20 13:06 Active Communication Order [RC] ROUTINE Care 03/22/20 15:14 Active Intake and Output [RC] QSHIFT Care 03/22/20 15:13 Active Notify Provider Consults [RC] ASDIRECTED Care 03/22/20 13:18 Active Oxygen Therapy [RC] PRN Care 03/22/20 15:13 Active RT Incentive Spirometry [RC] Q1HWA Care 03/22/20 15:13 Active Up ad Shraddha [RC] ASDIRECTED Care 03/22/20 15:13 Active Consult to Physician [CONS] Stat Cons 03/22/20 13:18 Active Regular Diet [DIET] Diet 03/22/20 Dinner Active Acetaminophen/oxyCODONE [Percocet 325-5 MG] Med 03/22/20 15:13 Active 2 tab PO Q4H PRN HYDROmorphone [Dilaudid] Med 03/22/20 15:13 Active 0.5 mg IVPUSH Q1H PRN Lactated Ringers [Ringers, Lactated] 1,000 ml Med 03/22/20 13:15 Active IV ASDIRECTED Sodium Chloride 0.9% [Normal Saline] Med 03/22/20 13:06 Active 10 ml IV ASDIRECTED PRN Sodium Chloride 0.9% [Saline Flush] Med 03/22/20 11:16 Active 10 ml FLUSH ASDIRECTED PRN Sodium Chloride 0.9% [Saline Flush] Med 03/22/20 13:06 Active 10 ml FLUSH ASDIRECTED PRN Sodium Chloride 0.9% [Saline Flush] Med 03/22/20 11:16 Active 2.5 ml FLUSH ASDIRECTED PRN Sodium Chloride 0.9% [Saline Flush] Med 03/22/20 13:06 Active 2.5 ml FLUSH ASDIRECTED PRN diphenhydrAMINE [Benadryl] Med 03/22/20 15:13 Active 50 mg PO Q4H PRN polyethylene glycoL 3350 [MiraLAX] Med 03/22/20 15:13 Active 17 gm PO DAILY PRN Peripheral IV Insertion Adult [OM.PC] Routine Oth 03/22/20 13:06 Ordered Saline Lock Insert [OM.PC] Stat Oth 03/22/20 11:16 Ordered Sequential Compression Device [OM.PC] Routine Oth 03/22/20 13:06 Ordered Resuscitation Status Routine Resus Stat 03/22/20 13:06 Ordered Medication Orders Diphenhydramine HCl (Benadryl) 50 mg PO Q4H PRN PRN Reason: Itching Last Admin: 03/22/20 17:31 Dose: 50 mg Documented by: [id number] Hydromorphone HCl (Dilaudid) 0.5 mg IVPUSH Q1H PRN PRN Reason: Pain (severe 7-10) Lactated Ringer's (Ringers, Lactated) 1,000 mls @ 125 mls/hr IV ASDIRECTED ROSS Last Admin: 03/22/20 16:11 Dose: 125 mls/hr Documented by: [email or web address] Oxycodone/Acetaminophen (Percocet 325-5 Mg) 2 tab PO Q4H PRN PRN Reason: Pain (moderate 4-6) Last Admin: 03/22/20 23:38 Dose: 2 tab Documented by: [email or web address] Polyethylene Glycol (Miralax) 17 gm PO DAILY PRN PRN Reason: Constipation Sodium Chloride (Saline Flush) 10 ml FLUSH ASDIRECTED PRN PRN Reason: Keep Vein Open Last Admin: 03/22/20 11:38 Dose: 10 ml Documented by: [id number] Sodium Chloride (Saline Flush) 2.5 ml FLUSH ASDIRECTED PRN PRN Reason: Keep Vein Open Last Admin: 03/22/20 11:38 Dose: 2.5 ml Documented by: [id number] Sodium Chloride (Saline Flush) 10 ml FLUSH ASDIRECTED PRN PRN Reason: Keep Vein Open Sodium Chloride (Saline Flush) 2.5 ml FLUSH ASDIRECTED PRN PRN Reason: Keep Vein Open Sodium Chloride (Normal Saline) 10 ml IV ASDIRECTED PRN PRN Reason: IV Use - Plan Plan (Free Text/Narrative):: Patients vitals are stable. Pain is well controlled. Tolerating diet. Having good UOP and passing gas. He was given discharge instructions and is cleared to go home.
[2020-03-23] MEDS: Acetaminophen/oxyCODONE 325-5 MG Tab PO PRN (08:13)
--- NOTE | 2020-03-23 10:03 | PCM48HPAN ---
Post Anesthesia Note - EVALUATION WITHIN 48HRS OF ANESTHETIC Vital Signs in Normal Range: Yes Patient Participated in Evaluation: Yes Respiratory Function Stable: Yes Airway Patent: Yes Cardiovascular Function Stable: Yes Hydration Status Stable: Yes Pain Control Satisfactory: Yes Nausea and Vomiting Control Satisfactory: Yes Mental Status Recovered: Yes Vital Signs: Last Vital Signs Temp 36.9 C 03/23/20 07:00 Pulse 68 03/23/20 07:00 Resp 18 03/23/20 07:00 BP 103/52 L 03/23/20 07:00 Pulse Ox 95 03/23/20 07:00
== END 2020-03-23 08:54 | disposition home or self-care (01) ==
LOC: MW.ED 10:36 → MW.SDS 13:09 → MW.MS 15:40 → MW.SDS 03-23 08:54
PROVIDERS: ATTEND Surgery
DX: K35.80 Unspecified acute appendicitis (principal); Z01.812 Encounter for preprocedural laboratory examination; Z20.822 Contact with and (suspected) exposure to COVID-19
CPT/HCPCS: 36415; 44970; 74177; 80053; 81003; 83690; 85025; 87635; 96365; 99285; A9270; J0131; J1100; J1885; J2001; J2250; J2405; J2543; J2704; J3010; J3490; J7030; J7050; J7120; Q9967; 88304; 99284; J1170; U0002